=== PATIENT | male | born 1950 | race Caucasian/White ===

== ENCOUNTER 2017-09-04 08:33 | Outpatient (CLI) | payer MEDICARE ==
[2017-09-04] MEDS ORDERED: Iopamidol 370 76% 100 ML VIAL ONE (09:00)
--- NOTE | 2017-09-04 10:24 | CT ---
CT ABDOMEN AND PELVIS WITH CONTRAST: Date: 09/04/17 HISTORY: R10.84, generalized abdominal pain. Constipation. Diarrhea. COMPARISON: None. FINDINGS: Mild atelectasis in the lung bases. No pericardial effusion. Multiple hepatic hypodensities are present, measuring fluid attenuation. Gallbladder is unremarkable, as well as the spleen. Hypodensity in peripheral right kidney measures fluid attenuation. No hydronephrosis. Urinary bladder wall is thickened. Moderate diverticular disease of the sigmoid colon without active inflammation. There is a diverticulum in the second portion of the duodenum. No dilated loops of large or small bow el. There is advanced degenerative disc space height loss at L5-S1 with end plate sclerosis and osteophyt e formation. Numerous bone islands. There are fibro-osseous cysts femoral head and neck junctions rodriguez aterally. There is soft tissue attenuation of the right inguinal area which may reflect prior inguinal hernia r epair. IMPRESSION: 1. No acute inflammatory process in the abdomen or pelvis. 2. Multiple hypodensities in the left lobe of the liver, which may reflect a cluster of cysts versus a biliary cyst adenoma/cyst adenocarcinoma with a fibrovascular core. A follow-up MRI liver protocol in 6 months recommended for further evaluation to evaluate for change in size and enhancing componen ts. 3. Moderate diverticular disease of sigmoid colon without active inflammation. DARRELL Johnson
== END 2017-09-04 08:34 | disposition home or self-care (01) ==
LOC: SCSCT 08:33
PROVIDERS: ATTEND Internal Medicine Geriatric Medicine
DX: R10.84 Generalized abdominal pain (principal); K57.30 Diverticulosis of large intestine without perforation or abscess without bleeding
CPT/HCPCS: 74177; 82565

== ENCOUNTER 2017-10-24 06:59 | Day surgery (SDC) | payer MEDICARE ==
[2017-10-23 11:21] VITALS: BMI 187.2
[2017-10-24 08:01] VITALS: BP 128/73; TEMP 97
--- NOTE | 2017-10-24 09:27 | RAD ---
FOUR VIEWS CERVICAL SPINE: INDICATION: History of cervical radiculopathy and post laminectomy syndrome. COMPARISON: Prior exam dated 11/16/14. FINDINGS: There is an ACDF C4 through T1 which is stable in position. Slight anterior translation of C7 on T1 is stable. Abnormal translational motion is seen on the flexion and extension dynamic lateral projection. There is a new dorsal column stimulator extending up to the C4 vertebral level. The degenerative disk dis ease at C3-4 appears similar. No acute fracture is evident. There are vascular calcifications invol ving the carotid bulb. The lung apices are clear. There is postsurgical change of a CABG. IMPRESSION: 1. Postoperative cervical spine. 2. No abnormal translational motion. 3. Interval placement of dorsal column stimulator to the level of C4. POS: [facility]
--- NOTE | 2017-10-24 10:17 | RAD ---
CERVICAL MYELOGRAM: INDICATION: Post laminectomy syndrome. TECHNIQUE: Informed consent was obtained. Preprocedure actuarial internship images of the lumbar spine were obtained for injec tion of site localization. The patient was placed prone on the fluoroscopic table. A bump was place d under the right hip. The right L2-L3 interlaminar space was marked. The site was prepped and drap ed in the usual sterile fashion. Buffered 1% Lidocaine was administered to the overlying subcutaneou s tissues. Under fluoroscopic guidance, a 22-gauge spinal needle was guided down into the thecal sac . There was spontaneous return of normal CSF fluid. 11 cc of Isovue 300M solution was then administ ered. The inner stylette was replaced within the spinal needle and the spinal needle was removed. P ressure was held at the injection site until hemostasis was obtained. The patient was then placed in a Trendelenburg position. Contrast was seen to flow through the level of the thoracic spine up to t he cervical spinal level. The patient tolerated the procedure without difficulty. The patient was t hen taken to the CT suite for a followup CT cervical myelogram. The total fluoroscopic time was 2.4 minutes. Total exposure was 722.2 mGy*^cm2. FINDINGS: There is a dorsal column stimulator projecting up to the C3 vertebral level. There is moderate multi level degenerative disk disease of the lumbar spine. No acute fracture is evident. There are scatte red vascular calcifications. There is an ACDF plate involving the cervical spine extending from appr oximately C4 through T1. IMPRESSION: Successful cervical myelogram. POS: [facility]
--- NOTE | 2017-10-24 11:18 | CT ---
CT CERVICAL MYELOGRAM: INDICATIONS: History of post laminectomy syndrome and cervical radiculopathy. COMPARISON: Prior MRI cervical spine dated 09/20/2016. TECHNIQUE: Multiple CT images were obtained of the cervical spine, following the intrathecal administration of I sovue-300 M solution. Please see the separately dictated cervical myelogram for details concerning t he injection technique. FINDINGS: There is a 1 cm hypodensity involving the inferior pole of the left thyroid gland. There are scatter ed vascular calcifications involving the carotid bulb. There is post surgical change of an ACDF span diana C4 through T1. There is 3.8 mm of anterior translation of C7 on T1 that is stable to the compar neo MR examination. There has been interval placement of a dorsal column stimulator extending up to the C3 vertebral level. The craniocervical junction appears within normal limits. There is solid osseous incorporation of the inner body bone graft of C4 through T1. At C2-C3, there is a broad-based disk osteophyte complex with some uncovertebral hypertrophy. There is mild bilateral neural foraminal narrowing. At C3-C4, there is uncovertebral hypertrophy and a broad-based disk osteophyte complex, with facet hy pertrophy, inducing mild right neural foraminal narrowing. The disk osteophyte complex does mildly e fface the ventral subarachnoid space without definite cord contact. C4-C5: There is facet hypertrophy with uncovertebral hypertrophy without appreciable osseous central canal or neural foraminal narrowing. C5-C6: There is facet hypertrophy with uncovertebral hypertrophy without appreciable osseous central canal or neural foraminal narrowing. C6-C7: There is some residual uncovertebral hypertrophy and facet joint degenerative change inducing mild right neural foraminal narrowing. C7-T1: There is no appreciable central canal or neural foraminal narrowing. T1-T2: There is no appreciable central canal or neural foraminal narrowing. T2-T3: There is no appreciable central canal or neural foraminal narrowing. T3-T4: There is no appreciable central canal or neural foraminal narrowing. IMPRESSION: 1. Postoperative cervical spine. 2. Dorsal column stimulator, extending up to the C3 level, through the T1 vertebral level. 3. Some mild multilevel osseous neural foraminal narrowing, as detailed above. 4. There is mild central canal narrowing at C3-C4, mildly effacing the subarachnoid space, without d efinite cord compression. This is related to a mild broad-based disk osteophyte complex. 5. Solid osseous incorporation of the interbody bone graft, extending from C4 through T1, with an as sociated anterior cervical diskectomy and fusion plate. 6. Stable anterior translation of C7 on T1 of 3.8 mm, when compared to a recent MRI examination date d 09/20/2016. POS: [facility]
[2017-10-24] MEDS ORDERED: Iopamidol-M 300 61% 15 ML VIAL ONE (20:24)
== END 2017-10-24 10:15 | disposition home or self-care (01) ==
LOC: RAD 06:59
PROVIDERS: ATTEND Anesthesiology Pain Medicine
PROC: B01B1ZZ Fluoroscopy of Spinal Cord using Low Osmolar Contrast (ICD-10-PCS; principal; 2017-10-24)
DX: M96.1 Postlaminectomy syndrome, not elsewhere classified (principal); M54.12 Radiculopathy, cervical region; I10 Essential (primary) hypertension; I25.2 Old myocardial infarction; M19.90 Unspecified osteoarthritis, unspecified site; Z79.891 Long term (current) use of opiate analgesic; Z79.82 Long term (current) use of aspirin; Z79.02 Long term (current) use of antithrombotics/antiplatelets; Z79.899 Other long term (current) drug therapy; Z98.1 Arthrodesis status; Z86.73 Personal history of transient ischemic attack (TIA), and cerebral infarction without residual deficits
CPT/HCPCS: 62302; 72050; 72126

== ENCOUNTER 2017-11-14 08:32 | Outpatient (CLI) | payer MEDICARE ==
--- NOTE | 2017-11-14 09:56 | CT ---
CT ABDOMEN AND PELVIS WITH AND WITHOUT IV CONTRAST: History: Liver cysts. Abdominal pain. Hematuria. Comparison: 09-04-17 FINDINGS: Nonspecific parenchymal scarring is present at each lung base. Each renal collecting system, ureter, and urinary bladder are decompressed without stone evident. There is prominent calcification througho ut the arterial structures. Spleen measures up to 14.7 cm. Gas filled diverticulum projects medially from the second portion of the duodenum. Degenerative changes lumbar spine. Diverticula arise from th e colon without adjacent inflammation. A cluster of cysts within the dome of the left liver lobe is again demonstrated. The largest individu al cyst is 1.7 cm greatest diameter. Smaller cysts scattered throughout the remainder of the liver me asure up to 0.7 cm at the inferior lateral margin of the right liver lobe. Cysts within the posterior cortex of the inferior pole right kidney is 1.4 cm. No solid enhancing masses of the kidneys are analilia arent. IMPRESSION: 1. Multiple hepatic cysts and right renal cysts. No solid masses are evident. 2. No urinary tract abnormalities are demonstrated to explain hematuria. 3. Mild splenomegaly. 4. Prominent atherosclerosis. 5. Diverticulosis. No evidence of diverticulitis. POS: [facility]
[2017-11-14] MEDS ORDERED: Iopamidol 370 76% 100 ML VIAL ONE (11:14)
== END 2017-11-14 08:33 | disposition home or self-care (01) ==
LOC: CT 08:32
PROVIDERS: ATTEND Internal Medicine Gastroenterology
DX: K76.89 Other specified diseases of liver (principal); N28.1 Cyst of kidney, acquired; R16.1 Splenomegaly, not elsewhere classified; I70.90 Unspecified atherosclerosis; K57.90 Diverticulosis of intestine, part unspecified, without perforation or abscess without bleeding
CPT/HCPCS: 74178; 82565

== ENCOUNTER 2021-02-08 | Outpatient (CLI) | payer MEDICARE | END 2021-02-08 13:04 | disposition home or self-care (01) ==

== ENCOUNTER 2021-10-16 08:19 | Outpatient (CLI) | payer MEDICARE ==
[2021-10-16 13:41] LABS: Anion Gap 15 mmol/L (10-20); BUN (Urea Nitrogen) 43 mg/dL (8.4-25.7); Calc. Creatinine Clearance 0 mL/min (70-130); Calcium 9.4 mg/dL (7.8-10.44); Carbon Dioxide 29 mmol/L (23-31); Chloride 97 mmol/L (98-107); Glucose 123 mg/dL (83-110); Potassium 3.3 mmol/L (3.5-5.1); Sodium 138 mmol/L (136-145)
== END 2021-10-16 08:20 | disposition home or self-care (01) ==
LOC: SCSRAD 08:19
PROVIDERS: ATTEND Internal Medicine Nephrology
DX: R06.02 Shortness of breath (principal); N18.4 Chronic kidney disease, stage 4 (severe); J90 Pleural effusion, not elsewhere classified; J98.11 Atelectasis; I51.7 Cardiomegaly
CPT/HCPCS: 36415; 71046; 80048; 83970